=== PATIENT | female | born 1990 | race African-American/Black ===

== ENCOUNTER 2017-03-03 08:33 | Emergency (ER) | payer SELFPAY ==
[~2017-03-03 08:33] MED LIST: CEPH-264 PO
[2017-03-03 08:42] VITALS: BP 169/97
--- NOTE | 2017-03-03 08:57 | EKG ---
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
--- NOTE | 2017-03-03 08:59 | PHYS DOC ---
Past Medical History Past Medical History: No Pertinent History Past Surgical History: No Surgical History Alcohol Use: None Drug Use: None Adult General Chief Complaint Chief Complaint: RIB PAIN HPI HPI Patient is a 26 year old female with no significant medical history who presents with 7 out of 10 sharp left anterior rib pain radiating to the mid back that began 2 days ago. Patient is also complaining of moderate low back pain. 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 She states she does heavy lifting. She states her pain is worse on lifting. Patient denies any chance she is . Denies any history of PEs. Denies any use of hormones. Denies any recent hospitalization. Review of Systems Review of Systems Constitutional: Denies fever or chills [] Eyes: Denies change in visual acuity, redness, or eye pain [] HENT: Denies nasal congestion or sore throat [] Respiratory: Left anterior rib pain radiating to the back Cardiovascular: No additional information not addressed in HPI [] GI: Denies abdominal pain, nausea, vomiting, bloody stools or diarrhea [] : Denies dysuria or hematuria [] Musculoskeletal: Denies back pain or joint pain [] Integument: Denies rash or skin lesions [] Neurologic: Denies headache, focal weakness or sensory changes [] Endocrine: Denies polyuria or polydipsia [] Current Medications Current Medications Current Medications Medications (Trade) Dose Ordered Sig/Cheryl Start Time Stop Time Status Last Admin Dose Admin Aspirin (Alea Aspirin) 325 mg 1X ONCE 03/03/17 09:00 03/03/17 09:01 DC 03/03/17 09:20 325 MG Info (Do NOT chart on this entry -- for MONITORING) 1 each PRN DAILY PRN 03/03/17 10:15 03/05/17 10:14 Iohexol (Omnipaque 300 Mg/ml) 75 ml 1X ONCE 03/03/17 10:15 03/03/17 10:16 DC 03/03/17 10:14 75 ML Allergies Allergies Allergies Coded Allergies Type Severity Reaction Last Updated Verified No Known Drug Allergies 03/24/16 No Physical Exam Physical Exam Constitutional: Well developed, well nourished, no acute distress, non-toxic appearance. [] HENT: Normocephalic, atraumatic, bilateral external ears normal, oropharynx moist, no oral exudates, nose normal. [] Eyes: PERRLA, EOMI, conjunctiva normal, no discharge. [] Neck: Normal range of motion, no tenderness, supple, no stridor. [] Cardiovascular:Heart rate regular rhythm, no murmur [] Lungs & Thorax: Bilateral breath sounds clear to auscultation [] Abdomen: Bowel sounds normal, soft, no tenderness, no masses, no pulsatile masses. [] Skin: Warm, dry, no erythema, no rash. [] Back: No tenderness, no CVA tenderness. [] Extremities: No tenderness, no cyanosis, no clubbing, ROM intact, no edema. [] Neurologic: Alert and oriented X 3, normal motor function, normal sensory function, no focal deficits noted. [] Psychologic: Affect normal, judgement normal, mood normal. [] Current Patient Data Vital Signs Vital Signs Date Time Temp Pulse Resp B/P (MAP) Pulse Ox O2 Delivery O2 Flow Rate FiO2 03/03/17 08:42 98.6 69 16 169/97 (121) 99 Room Air 98.6 Lab Values Laboratory Tests Test 03/03/17 08:06 03/03/17 08:50 03/03/17 09:18 03/03/17 09:22 POC Urine HCG, Qualitative Hcg negative (Negative) White Blood Count 13.1 x10^3/uL (4.0-11.0) H Red Blood Count 4.75 x10^6/uL (3.50-5.40) Hemoglobin 12.6 g/dL (12.0-15.5) Hematocrit 38.5 % (36.0-47.0) Mean Corpuscular Volume 81 fL (79-100) Mean Corpuscular Hemoglobin 27 pg (25-35) Mean Corpuscular Hemoglobin Concent 33 g/dL (31-37) Red Cell Distribution Width 14.2 % (11.5-14.5) Platelet Count 357 x10^3/uL (140-400) Neutrophils (%) (Auto) 62 % (31-73) Lymphocytes (%) (Auto) 29 % (24-48) Monocytes (%) (Auto) 6 % (0-9) Eosinophils (%) (Auto) 3 % (0-3) Basophils (%) (Auto) 1 % (0-3) Neutrophils # (Auto) 8.1 x10^3uL (1.8-7.7) H Lymphocytes # (Auto) 3.8 x10^3/uL (1.0-4.8) Monocytes # (Auto) 0.8 x10^3/uL (0.0-1.1) Eosinophils # (Auto) 0.3 x10^3/uL (0.0-0.7) Basophils # (Auto) 0.1 x10^3/uL (0.0-0.2) D-Dimer (Delaney) 1.03 ug/mlFEU (0.00-0.50) H Urine Collection Type Unknown Urine Color Yellow Urine Clarity Clear Urine pH 6.0 Urine Specific [place] 1.015 Urine Protein Negative mg/dL (NEG-TRACE) Urine Glucose (UA) Negative mg/dL (NEG) Urine Ketones (Stick) Negative mg/dL (NEG) Urine Blood Negative (NEG) Urine Nitrite Negative (NEG) Urine Bilirubin Negative (NEG) Urine Urobilinogen Dipstick 0.2 mg/dL (0.2 mg/dL) Urine Leukocyte Esterase Negative (NEG) Urine RBC 0 /HPF (0-2) Urine WBC 0 /HPF (0-4) Urine Squamous Epithelial Cells Mod /LPF Urine Bacteria 0 /HPF (0-FEW) Urine Mucus Slight /LPF POC Troponin I 0.00 ng/ml (<0.08) POC Hemoglobin 13.9 g/dL (12-15) POC Hematocrit 41 % (36-40) H POC Sodium 140 mmol/L (135-145) POC Potassium 3.9 mmol/L (3.5-5.0) POC Chloride 100 mmol/L (98-110) POC Total CO2 28 mmol/L (23-32) Anion Gap 17 mmol/L (6-14) H POC Blood Urea Nitrogen 5 mg/dL (8-26) L POC Creatinine 0.7 mg/dL (0.5-1.4) Glucose Level 80 mg/dL (70-99) POC Ionized Calcium (Teresa) 1.11 mmol/L (1.13-1.32) L Laboratory Tests 03/03/17 08:50 Laboratory Tests 03/03/17 09:22 EKG EKG 08:[address] Blanca sinus rythm, HR 76 no STEMI[] Radiology/Procedures Radiology/Procedures []PROCEDURE: CHEST PA & LATERAL; THORACIC SPINE 3V Chest, 2 views, 03/03/2017: History: Left-sided chest and back pain The heart is at the upper limits of normal in size. The pulmonary vascularity is normal. No pulmonary infiltrates are seen. There is no evidence of pleural fluid. IMPRESSION: No acute cardiopulmonary abnormality is detected. Thoracic spine, 3 views, 03/03/2017: The vertebral heights are well-maintained. No fracture or dislocation is evident. The paraspinous soft tissues are unremarkable. IMPRESSION: No significant thoracic spine abnormality is detected. DICTATED and SIGNED BY: ALLISON TOMAS MD DATE: 03/03/1728 CC: JOSSE HILL APRN; REHAN GODINEZ Jr, MD ~ Course & Med Decision Making Course & Med Decision Making Pertinent Labs and Imaging studies reviewed. (See chart for details) Patient is in the ED with complaints of left rib pain radiating to the back, patient states she works at a [place] [employer] [facility] and does heavy lifting. She is requesting thoracic spine x-rays. CBC with no acute findings. Chem 8 and i-STAT troponin with no acute findings. Negative EKG. Negative urine hCG, urine analysis is negative for infection. Cervical spine thorax and spine x-rays and chest x-ray interpreted by radiologist are negative for any acute findings. Patient had an elevated d-dimer. A CTA chest was obtained which was negative for any acute findings. Her pain is musculoskeletal probably from heavy lifting at work. She was discharged with cyclobenzaprine and naproxen. Follow-up with PCP in 1-2 weeks. Dragon Disclaimer Dragon Disclaimer This electronic medical record was generated, in whole or in part, using a voice recognition dictation system. Departure Departure Impression: Primary Impression: Musculoskeletal chest pain Disposition: HOME, SELF-CARE Condition: STABLE Referrals: NO PCP (PCP) Patient Instructions: Musculoskeletal Pain Additional Instructions: You were seen for musculoskeletal pain rib pain. Your work up in the emergency room is negative for any acute findings. We highly recommend you follow-up with the primary care doctor in 1-2 weeks. Take the prescribed medicines as needed. Do not drive or operate machinery is on the cyclobenzaprine. Scripts Cyclobenzaprine Hcl (CYCLOBENZAPRINE HCL) 10 Mg Tablet 1 TAB PO TID, #30 TAB Prov: JOSSE HILL APRN 8/15/17 Naproxen (NAPROXEN) 500 Mg Tablet.dr 1 TAB PO BID, #30 TAB 0 Refills Prov: JOSSE HILL APRN 03/03/17 JOSSE HILL APRN Mar 03, 2017 08:59
[2017-03-03] MEDS ORDERED: ASPIRIN 325 MG TABLET PO ONE (09:00)
[2017-03-03 09:02] LABS: BASO # 0.1 x10^3/uL (0.0-0.2); BASO % 1 % (0-3); EOS % 3 % (0-3); HEMATOCRIT 38.5 % (36.0-47.0); HEMOGLOBIN 12.6 g/dL (12.0-15.5); LYMPH # 3.8 x10^3/uL (1.0-4.8); LYMPH % 29 % (24-48); MEAN CORPUSCULAR HEMOGLOBIN 27 pg (25-35); MEAN CORPUSCULAR HGB CONC 33 g/dL (31-37); MEAN CORPUSCULAR VOLUME 81 fL (79-100); MONO % 6 % (0-9); NEUT % 62 % (31-73); PLATELET COUNT 357 x10^3/uL (140-400); RED BLOOD COUNT 4.75 x10^6/uL (3.50-5.40); RED CELL DISTRIBUTION WIDTH 14.2 % (11.5-14.5); WHITE BLOOD COUNT 13.1 x10^3/uL (4.0-11.0)
[2017-03-03 09:04] LABS: BILIRUBIN,URINE NEGATIVE (NEG); GLUCOSE,URINE NEGATIVE (NEG); NITRITE,URINE NEGATIVE (NEG); PROTEIN,URINE NEGATIVE (NEG-TRACE); UROBILINOGEN,URINE 0.2 mg/dL (0.2 mg/dL)
[2017-03-03 09:28] LABS: POTASSIUM ISTAT 3.9 mmol/L (3.5-5.0)
--- NOTE | 2017-03-03 09:33 | RAD ---
Chest, 2 views, 03/03/2017: History: Left-sided chest and back pain The heart is at the upper limits of normal in size. The pulmonary vascularity is normal. No pulmonary infiltrates are seen. There is no evidence of pleural fluid. IMPRESSION: No acute cardiopulmonary abnormality is detected. Thoracic spine, 3 views, 03/03/2017: The vertebral heights are well-maintained. No fracture or dislocation is evident. The paraspinous soft tissues are unremarkable. IMPRESSION: No significant thoracic spine abnormality is detected.
[2017-03-03 09:44] LABS: BACTERIA,URINE 0 /HPF (0-FEW); RBC,URINE 0 /HPF (0-2); SQUAMOUS EPITHELIAL CELL,UR MOD /LPF; WBC,URINE 0 /HPF (0-4)
[2017-03-03] MEDS ORDERED: IOHEXOL 300 MG/ML 75 ML VIAL IV ONE (10:15)
[2017-03-03] MEDS ORDERED: CONTRAST GIVEN MC PRN (10:15)
--- NOTE | 2017-03-03 10:43 | RAD ---
CT angiography chest with contrast 03/03/2017 at 1014 hours Indication: Rib pain with elevated d-dimer. Comparison: None available Technique: Multiple axial CT images of the chest were obtained after the administration of intravenous contrast per pulmonary embolism protocol. Omnipaque 300 75 mL cyst was administered intravenously. Coronal and sagittal reformats are provided. Maximum intensity projection images are provided. Findings: The thyroid gland is normal in appearance. Heart size is within normal limits. There is no pericardial effusion. Thoracic aorta is normal in course and caliber. There is inadequate evaluation of the subsegmental pulmonary arterial distribution secondary to suboptimal contrast opacification of the pulmonary arterial system. However, there are no filling defects in the central, main, lobar and segmental pulmonary arteries to suggest a pulmonary embolism. There are no suspicious pulmonary nodules. No pulmonary infiltrates are identified. No pleural effusions. No pulmonary vascular congestion or pneumothorax. Visualized portions of the upper abdomen are within normal limits. No suspicious osseous lesions are identified. Impression: 1. Given limitations, no evidence for pulmonary embolism as detailed above. 2. No acute abdominal disease identified within the thorax. Specifically, no acutely displaced rib fracture is identified. PQRS Compliance Statement: One or more of the following individualized dose reduction techniques were utilized for this examination: 1. Automated exposure control 2. Adjustment of the mA and/or kV according to patient size 3. Use of iterative reconstruction technique
[2017-03-03] MEDS ORDERED: CYCL10TA2 PO (11:31)
[2017-03-03] MEDS ORDERED: NAPR500T8 PO (11:31)
== END 2017-03-03 11:37 | disposition home or self-care (01) ==
LOC: ER 08:33
DX: R07.89 Other chest pain (principal); M54.5 Low back pain
CPT/HCPCS: 36415; 71020; 71275; 72072; 80047; 81001; 81025; 84484; 85025; 85379; 93005; 99285; Q9967

== ENCOUNTER 2017-08-25 05:36 | Emergency (ER) | payer OTHER ==
[2017-08-25 06:10] LABS: URINE HCG POC HCG POSITIVE (Negative)
[2017-08-25 06:21] LABS: BILIRUBIN,URINE NEGATIVE (NEG); CLARITY,URINE CLEAR; COLOR,URINE YELLOW; GLUCOSE,URINE NEGATIVE (NEG); NITRITE,URINE NEGATIVE (NEG); PROTEIN,URINE NEGATIVE (NEG-TRACE); UROBILINOGEN,URINE 0.2 mg/dL (0.2 mg/dL)
[2017-08-25 06:28] LABS: ADD MAN DIFF? NO
[2017-08-25 06:34] LABS: BASO # 0.1 x10^3/uL (0.0-0.2); BASO % 1 % (0-3); EOS # 0.4 x10^3/uL (0.0-0.7); EOS % 4 % (0-3); HEMATOCRIT 39.5 % (36.0-47.0); HEMOGLOBIN 12.8 g/dL (12.0-15.5); LYMPH # 3.8 x10^3/uL (1.0-4.8); LYMPH % 30 % (24-48); MEAN CORPUSCULAR HEMOGLOBIN 27 pg (25-35); MEAN CORPUSCULAR HGB CONC 33 g/dL (31-37); MEAN CORPUSCULAR VOLUME 82 fL (79-100); MONO # 0.8 x10^3/uL (0.0-1.1); MONO % 6 % (0-9); NEUT # 7.7 x10^3uL (1.8-7.7); NEUT % 60 % (31-73); PLATELET COUNT 390 x10^3/uL (140-400); RED CELL DISTRIBUTION WIDTH 13.5 % (11.5-14.5); WHITE BLOOD COUNT 12.8 x10^3/uL (4.0-11.0)
[2017-08-25 06:38] LABS: SQUAMOUS EPITHELIAL CELL,UR MANY /LPF
[2017-08-25 06:39] LABS: BACTERIA,URINE FEW /HPF (0-FEW)
[2017-08-25 06:41] LABS: RBC,URINE OCC /HPF (0-2); WBC,URINE OCC /HPF (0-4)
[2017-08-25 06:42] LABS: PARTIAL THROMBOPLASTIN TIME 27 SEC (24-38); PROTHROMBIN TIME PATIENT 12.2 SEC (11.7-14.0)
[2017-08-25 07:18] LABS: ANION GAP 8 (6-14); BLOOD UREA NITROGEN 10 mg/dL (7-20); CALCIUM 9.1 mg/dL (8.5-10.1); CARBON DIOXIDE 30 mmol/L (21-32); CHLORIDE 100 mmol/L (98-107); CREATININE 0.7 mg/dL (0.6-1.0); GFR 123.4; GLUCOSE 97 mg/dL (70-99); POTASSIUM 3.5 mmol/L (3.5-5.1); SODIUM 138 mmol/L (136-145)
[2017-08-25 07:24] LABS: ALBUMIN 3.7 g/dL (3.4-5.0); ALK PHOS 54 U/L (46-116); ALT (SGPT) 23 U/L (14-59); AST (SGOT) 18 U/L (15-37); DIRECT BILIRUBIN 0.1 mg/dL (0.0-0.2); TOTAL BILIRUBIN 0.1 mg/dL (0.2-1.0); TOTAL PROTEIN 7.4 g/dL (6.4-8.2)
[2017-08-26 20:12] LABS: CHLAMYDIA PROBE Negative (Negative); GC PROBE Negative (Negative)
== END 2017-08-25 08:38 | disposition home or self-care (01) ==
LOC: ER 05:36
DX: O20.0 Threatened abortion (principal); O23.591 Infection of other part of genital tract in pregnancy, first trimester; B96.89 Other specified bacterial agents as the cause of diseases classified elsewhere; R82.71 Bacteriuria; Z3A.01 Less than 8 weeks gestation of pregnancy
CPT/HCPCS: 36415; 76801; 76817; 80048; 80076; 81001; 81025; 85025; 85610; 85730; 86900; 86901; 87491; 87591; 99285-25; Q0111

== ENCOUNTER 2017-09-29 07:51 | Emergency (ER) | payer OTHER ==
[2017-09-29] MEDS: ACETAMINOPHEN 500 MG TABLET PO (08:11)
== END 2017-09-29 08:25 | disposition home or self-care (01) ==
LOC: ER 07:51
DX: O9A.211 Injury, poisoning and certain other consequences of external causes complicating pregnancy, first trimester (principal); S16.1XXA Strain of muscle, fascia and tendon at neck level, initial encounter; S46.911A Strain of unspecified muscle, fascia and tendon at shoulder and upper arm level, right arm, initial encounter; Z3A.12 12 weeks gestation of pregnancy; X58.XXXA Exposure to other specified factors, initial encounter; Y93.F2 Activity, caregiving, lifting; Y92.239 Unspecified place in hospital as the place of occurrence of the external cause; Y99.8 Other external cause status
CPT/HCPCS: 99282

== ENCOUNTER → 2017-12-01 | Outpatient (CLI) | payer OTHER ==
[2017-12-01 10:02] LABS: ADD MAN DIFF? NO
[2017-12-01 10:07] LABS: BASO # 0.1 x10^3/uL (0.0-0.2); BASO % 1 % (0-3); EOS # 0.8 x10^3/uL (0.0-0.7); EOS % 7 % (0-3); HEMATOCRIT 37.2 % (36.0-47.0); HEMOGLOBIN 12.2 g/dL (12.0-15.5); LYMPH # 3.2 x10^3/uL (1.0-4.8); LYMPH % 28 % (24-48); MEAN CORPUSCULAR HEMOGLOBIN 27 pg (25-35); MEAN CORPUSCULAR HGB CONC 33 g/dL (31-37); MEAN CORPUSCULAR VOLUME 82 fL (79-100); MONO # 0.7 x10^3/uL (0.0-1.1); MONO % 6 % (0-9); NEUT # 6.6 x10^3uL (1.8-7.7); NEUT % 59 % (31-73); PLATELET COUNT 388 x10^3/uL (140-400); RED BLOOD COUNT 4.53 x10^6/uL (3.50-5.40); RED CELL DISTRIBUTION WIDTH 13.4 % (11.5-14.5); WHITE BLOOD COUNT 11.3 x10^3/uL (4.0-11.0)
[2017-12-01 10:43] LABS: THYROID STIM HORMONE (TSH) 1.422 uIU/mL (0.358-3.74)
[2017-12-01 10:43] LABS: FREE T4 1.06 ng/dL (0.76-1.46)
[2017-12-02 00:12] LABS: HEMOGLOBIN A1C 4.5 % (4.8-5.6)
== END | disposition home or self-care (01) ==
LOC: LAB 09:13
DX: N93.8 Other specified abnormal uterine and vaginal bleeding (principal)
CPT/HCPCS: 83036; 84439; 84443; 85025

== ENCOUNTER 2017-12-03 22:12 | Emergency (ER) | payer OTHER | END 2017-12-03 22:51 | disposition home or self-care (01) | LOC: ER 22:12 | DX: I10 Essential (primary) hypertension (principal); R51 Headache | CPT/HCPCS: 99281 ==

== ENCOUNTER → 2017-12-08 | Outpatient (CLI) | payer OTHER | END | disposition home or self-care (01) | LOC: MRI 08:37 | DX: G44.201 Tension-type headache, unspecified, intractable (principal); I10 Essential (primary) hypertension; Z82.49 Family history of ischemic heart disease and other diseases of the circulatory system | CPT/HCPCS: 70544 ==

== ENCOUNTER 2018-11-27 11:04 | Emergency (ER) | payer BC, SELFPAY ==
[~2018-11-27] VITALS: Ht 172.7 cm; Wt 81.6 kg
[~2018-11-27 11:04] MED LIST changes: +CLIN300C8 PO; +CYCL10TA2 PO; +NAPR500T8 PO; +NITR100C62 PO
[2018-11-27 11:11] VITALS: BP 148/84
[2018-11-27] MEDS ORDERED: LOPERAMIDE 2 MG CAPSULE PO STA (12:17)
[2018-11-27] MEDS ORDERED: NAPROXEN 500 MG TABLET PO STA (12:17)
--- NOTE | 2018-11-27 12:22 | PHYS DOC ---
Past Medical History Past Medical History: Hypertension Past Surgical History: No Surgical History Alcohol Use: Occasionally Drug Use: None Adult General Chief Complaint Chief Complaint: back pain and diarrhea [facility] HPI Patient is a 28 year old female who presents with complaining of low back pain and diarrhea for more than one week. Patient complaining of couple episodes of emesis during the day for the last 1 week without nausea and vomiting. Patient also complaining of bilateral low back pain with radiation to the suprapubic area for the last 1 week as a constant pain that getting worse with movement. Patient denies urinary symptoms, vaginal bleeding or discharge, pain during intercourse, fever and chills, sick contacts, history of the same problem, . Patient rated her pain 8/10 and denied taking pain or diarrhea medication. Review of Systems Review of Systems Constitutional: Denies fever or chills [] Eyes: Denies change in visual acuity, redness, or eye pain [] HENT: Denies nasal congestion or sore throat [] Respiratory: Denies cough or shortness of breath [] Cardiovascular: No additional information not addressed in HPI [] GI: Reports abdominal pain and diarrhea, denies nausea and vomiting : Denies dysuria or hematuria [] Musculoskeletal: Reports back pain, denies joint pain Integument: Denies rash or skin lesions [] Neurologic: Denies headache, focal weakness or sensory changes [] Endocrine: Denies polyuria or polydipsia [] All other systems were reviewed and found to be within normal limits, except as documented in this note. Current Medications Current Medications Current Medications Medications (Trade) Dose Ordered Sig/Cheryl Start Time Stop Time Status Last Admin Dose Admin Loperamide HCl (Imodium) 4 mg 1X STAT 11/27/18 12:17 11/27/18 12:19 DC 11/27/18 12:25 4 MG Naproxen (Naprosyn) 500 mg 1X STAT 11/27/18 12:17 11/27/18 12:19 DC Allergies Allergies Allergies Coded Allergies Type Severity Reaction Last Updated Verified No Known Drug Allergies 03/24/16 No Physical Exam Physical Exam Constitutional: Well developed, well nourished, mild distress, non-toxic appearance. [] HENT: Normocephalic, atraumatic, oropharynx moist. Eyes: PERRLA, EOMI, conjunctiva normal, no discharge. [] Neck: Normal range of motion, no tenderness, supple, no stridor. [] Cardiovascular:Heart rate regular rhythm, no murmur [] Lungs & Thorax: Bilateral breath sounds clear to auscultation [] Abdomen: Bowel sounds normal, soft, no tenderness, no masses, no pulsatile masses. [] Skin: Warm, dry, no erythema, no rash. [] Back: No tenderness, no CVA tenderness. [] Extremities: No tenderness, no cyanosis, no clubbing, ROM intact, no edema. [] Neurologic: Alert and oriented X 3, normal motor function, normal sensory function, no focal deficits noted. [] Psychologic: Affect normal, judgement normal, mood normal. [] Current Patient Data Vital Signs Vital Signs Date Time Temp Pulse Resp B/P (MAP) Pulse Ox O2 Delivery O2 Flow Rate FiO2 11/27/18 11:11 98.2 94 16 148/84 (105) 98 Room Air 98.2 Lab Values Laboratory Tests Test 11/27/18 11:18 11/27/18 12:30 POC Urine HCG, Qualitative Hcg negative (Negative) Urine Collection Type Unknown Urine Color Yellow Urine Clarity Clear Urine pH 6.5 Urine Specific [place] 1.015 Urine Protein Negative mg/dL (NEG-TRACE) Urine Glucose (UA) Negative mg/dL (NEG) Urine Ketones (Stick) Negative mg/dL (NEG) Urine Blood Negative (NEG) Urine Nitrite Negative (NEG) Urine Bilirubin Negative (NEG) Urine Urobilinogen Dipstick 0.2 mg/dL (0.2 mg/dL) Urine Leukocyte Esterase Negative (NEG) Urine RBC 1-2 /HPF (0-2) Urine WBC 1-4 /HPF (0-4) Urine Squamous Epithelial Cells Mod /LPF Urine Bacteria 0 /HPF (0-FEW) Urine Trichomonas Present EKG EKG [] Radiology/Procedures Radiology/Procedures [] Course & Med Decision Making Course & Med Decision Making Pertinent Labs reviewed. (See chart for details) Evaluation of patient in ER showed 28-year-old male patient with complaining of couple episodes of diarrhea a day for one week and low back pain. Patient had unremarkable physical exam and UA and negative test. Patient didn't want to have pain medication in ER. Plan to discharge patient home to diagnose of viral diarrhea. Dragon Disclaimer Dragon Disclaimer This electronic medical record was generated, in whole or in part, using a voice recognition dictation system. Departure Departure Impression: Primary Impression: Viral diarrhea Additional Impression: Lumbosacral strain Disposition: 01 HOME, SELF-CARE (at 1317) Condition: STABLE Referrals: RAMAN WHITE (PCP) Patient Instructions: Diarrhea, Diet for Diarrhea, Adult, Lumbosacral Strain Additional Instructions: Drink plenty of liquids Follow-up with your primary care physician in 3-5 days Return to ER if not getting better Scripts Tramadol Hcl (ULTRAM) 50 Mg Tablet 50 MG PO Q6HRS PRN for PAIN, #14 TAB 0 Refills Prov: ZENAIDA FARIAS MD 11/27/18 Problem Qualifiers Additional Impression: Lumbosacral strain Encounter type: initial encounter Qualified Codes: S39.012A - Strain of muscle, fascia and tendon of lower back, initial encounter ZENAIDA FARIAS MD November 27, 2018 12:22
[2018-11-27 12:45] LABS: BILIRUBIN,URINE NEGATIVE (NEG); CLARITY,URINE CLEAR; COLOR,URINE YELLOW; NITRITE,URINE NEGATIVE (NEG); PH,URINE 6.5; PROTEIN,URINE NEGATIVE (NEG-TRACE); UROBILINOGEN,URINE 0.2 mg/dL (0.2 mg/dL)
[2018-11-27 12:52] LABS: SQUAMOUS EPITHELIAL CELL,UR MOD /LPF
[2018-11-27 12:53] LABS: BACTERIA,URINE 0 /HPF (0-FEW); TRICHOMONAS,URINE PRESENT
[2018-11-27] MEDS ORDERED: TRAM-48 PO (13:19)
== END 2018-11-27 13:37 | disposition home or self-care (01) ==
LOC: ER 11:04
DX: S39.012A Strain of muscle, fascia and tendon of lower back, initial encounter (principal); A08.39 Other viral enteritis; I10 Essential (primary) hypertension
CPT/HCPCS: 81001; 81025; 99283; 99284

== ENCOUNTER 2020-02-10 18:13 | Emergency (ER) | payer OTHER ==
[~2020-02-10] VITALS: Ht 167.6 cm; Wt 113.6 kg
[~2020-02-10 18:13] MED LIST changes: +TRAM-48 PO
--- NOTE | 2020-02-10 19:18 | PHYS DOC ---
Past Medical History Past Medical History: Hypertension Past Surgical History: No Surgical History Smoking Status: Never Smoker Alcohol Use: Occasionally Drug Use: None General Adult EDM: Chief Complaint: CHEST PAIN HPI: HPI: Patient is a 29 year old female who presents with a several day history of substernal left-sided chest pain nonradiating described as a tightness. Pain is 6-7 out of 10 at its worst. Patient also describes some shortness of breath. 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 Patient denies any fever or cough. Patient was tested by her primary care physician and she had a COVID test done yesterday. Patient's just got back from [place]. Review of Systems: Review of Systems: Constitutional: Denies fever or chills. [] Eyes: Denies change in visual acuity. [] HENT: Denies nasal congestion or sore throat. [] Respiratory: Denies cough or shortness of breath. [] Cardiovascular: Denies chest pain or edema. [] GI: Denies abdominal pain, nausea, vomiting, bloody stools or diarrhea. [] : Denies dysuria. [] Musculoskeletal: Denies back pain or joint pain. [] Integument: Denies rash. [] Neurologic: Denies headache, focal weakness or sensory changes. [] Endocrine: Denies polyuria or polydipsia. [] Lymphatic: Denies swollen glands. [] Psychiatric: Denies depression or anxiety. [] Heart Score: HEART Score for Chest Pain: HEART Score for Chest Pain Response (Comments) Value History Slighlty/Non-Suspicious 0 ECG Normal 0 Age < 45 0 Risk Factors 1 or 2 Risk Factors 1 Total 1 Risk Factors: Risk Factors: DM, Current or recent (<one month) smoker, HTN, HLP, family history of CAD, obesity. Risk Scores: Score 0 - 3: 2.5% MACE over next 6 weeks - Discharge Home Score 4 - 6: 20.3% MACE over next 6 weeks - Admit for Clinical Observation Score 7 - 10: 72.7% MACE over next 6 weeks - Early Invasive Strategies Allergies: Allergies: Allergies Coded Allergies Type Severity Reaction Last Updated Verified No Known Drug Allergies 03/24/16 No Physical Exam: PE: Constitutional: Well developed, well nourished, no acute distress, non-toxic appearance. HENT: No trismus, external ears normal Eyes: Conjunctiva clear, EOMI Neck: Normal range of motion, no tenderness, supple, no stridor. Cardiovascular: Regular rhythm, tachycardia, peripheral pulse intact, PROP ATTENDANT intact Lungs & Thorax: No respiratory distress Abdomen: No distension Skin: Diffuse: Intact, no rash Back: Full ROM Extremities: Normal inspection, no edema Neurologic: Alert and oriented X 3, normal motor function, , no focal deficits noted. Motor intact to the left hand. Peripheral pulses intact. Psychologic: Affect normal, judgement normal, mood normal. Current Patient Data: Vital Signs: Vital Signs Date Time Temp Pulse Resp B/P (MAP) Pulse Ox O2 Delivery O2 Flow Rate FiO2 02/10/20 19:20 98.8 109 20 177/108 (131) 100 Room Air 98.8 Vital Signs Date Time Temp Pulse Resp B/P (MAP) Pulse Ox O2 Delivery O2 Flow Rate FiO2 02/10/20 19:20 98.8 109 20 177/108 (131) 100 Room Air 98.8 EKG: EKG: [] EKG interpreted by az sinus tachycardia with a rate of 110 normal axis normal intervals normal ST segments Radiology/Procedures: Radiology/Procedures: [] Course & Med Decision Making: Course & Med Decision Making Pertinent Labs and Imaging studies reviewed. (See chart for details) [] 29-year-old female presents with chest pain. Patient recently was off her COVID. Those results are pending. X-ray is clear. Patient's labs are all pending, care will be signed over to Dr. Alicia with labs and disposition pending. Dean Disclaimer: Dean Disclaimer: This electronic medical record was generated, in whole or in part, using a voice recognition dictation system. Departure Departure Impression: Primary Impression: CHEST PAIN, UNSPECIFIED Referrals: RAMAN WHITE (PCP) Justicifation of Admission Dx: Justifications for Admission: Justification of Admission Dx: N/A KENNEDY HEARD MD Feb 10, 2020 19:18
--- NOTE | 2020-02-10 20:03 | RAD ---
PORTABLE CHEST 1V Clinical History: Reason: cp / Spl. Instructions: / History: Technique: AP view of the chest was obtained at 02/10/2020 7:16 PM. Comparison: March 03, 2017. Findings: The cardiomediastinal silhouette is normal. The pulmonary vasculature is normal. The lungs and pleural margins are clear. Impression: No evidence of an acute cardiopulmonary process. Electronically signed by: Donovan Randolph III, MD (02/10/2020 8:00 PM) [facility]
[2020-02-10 20:11] LABS: BASO # 0.1 x10^3/uL (0.0-0.2); BASO % 1 % (0-3); EOS # 0.1 x10^3/uL (0.0-0.7); EOS % 1 % (0-3); HEMATOCRIT 43.4 % (36.0-47.0); LYMPH # 3.1 x10^3/uL (1.0-4.8); LYMPH % 21 % (24-48); MEAN CORPUSCULAR HEMOGLOBIN 29 pg (25-35); MEAN CORPUSCULAR HGB CONC 35 g/dL (31-37); MEAN CORPUSCULAR VOLUME 83 fL (79-100); MONO % 7 % (0-9); NEUT # 10.5 x10^3/uL (1.8-7.7); NEUT % 71 % (31-73); PLATELET COUNT 392 x10^3/uL (140-400); RED BLOOD COUNT 5.21 x10^6/uL (3.50-5.40); RED CELL DISTRIBUTION WIDTH 14.2 % (11.5-14.5); WHITE BLOOD COUNT 14.9 x10^3/uL (4.0-11.0)
[2020-02-10 20:50] VITALS: BP 171/104
--- NOTE | 2020-02-14 03:35 | EKG ---
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
== END 2020-02-10 21:15 | disposition left against medical advice (07) ==
LOC: ER 18:13
DX: R07.89 Other chest pain (principal); R06.02 Shortness of breath; I10 Essential (primary) hypertension
CPT/HCPCS: 36415; 71045; 85025; 93005; 99285